=== PATIENT | male | born 1965 | race Caucasian/White ===

== ENCOUNTER → 2016-12-03 | Outpatient (REF) | payer OTHER ==
[2016-12-03 12:18] LABS: MEAN CORPUSCULAR HGB CONC 32.8 g/dl (32.0-36.5); MEAN CORPUSCULAR VOLUME 91.5 fl (80.0-96.0); RED CELL DISTRIBUTION WIDTH 12.4 % (11.5-14.5); WHITE BLOOD COUNT 8.2 K/mm3 (4.0-10.0)
[2016-12-03 12:34] LABS: ALBUMIN 3.6 GM/DL (3.2-5.2); ALBUMIN/GLOBULIN RATIO 0.92 (1.00-1.93); ALKALINE PHOSPHATASE 79 U/L (45-117); ALT/SGPT 21 U/L (12-78); ANION GAP 6 MEQ/L (8-16); AST/SGOT 15 U/L (15-37); BLOOD UREA NITROGEN 10 MG/DL (7-18); CALCIUM LEVEL 8.7 MG/DL (8.5-10.1); CARBON DIOXIDE LEVEL 30 MEQ/L (21-32); CHLORIDE LEVEL 104 MEQ/L (98-107); CREATININE FOR GFR 0.89 MG/DL (0.70-1.30); FREE T4 1.12 NG/DL (0.76-1.46); GLOMERULAR FILTRATION RATE > 60.0 (>60); GLUCOSE, FASTING 80 MG/DL (70-105); POTASSIUM SERUM 4.3 MEQ/L (3.5-5.1); SODIUM LEVEL 140 MEQ/L (136-145); TOTAL PROTEIN 7.5 GM/DL (6.4-8.2)
[2016-12-03 12:40] LABS: BILIRUBIN,TOTAL 0.4 MG/DL (0.2-1.0)
== END ==
LOC: M SFHCPLAZ 10:23
PROVIDERS: ATTEND Physician Assistant Medical
DX: J32.9 Chronic sinusitis, unspecified (principal); R55 Syncope and collapse

== ENCOUNTER → 2017-01-01 | Outpatient (CLI) | payer OTHER ==
--- NOTE | 2017-01-01 16:23 | REP ---
CAROTID ULTRASOUND: Real-time ultrasound evaluation and duplex Doppler interrogation of the extracranial carotid vasculature is performed. There is mild plaquing and narrowing in both carotid bulbs extending into the internal and external carotid arteries. Luminal narrowing is less than 50%. There is no evidence of hemodynamically significant stenosis of either internal carotid artery. Normal flow velocities are seen. The vertebral arteries demonstrate normal direction of flow. RIGHT LEFT Peak systolic velocity ICA 64.0 cm/s 54.3 cm/s End diastolic velocity ICA 27.1 cm/s 19.5 cm/s Peak systolic velocity CCA 119.5 cm/s 109.4 cm/s Peak systolic velocity ECA 89.8 cm/s 80.9 cm/s ICA/CCA ratio 0.54 0.5 IMPRESSION: Bilateral luminal narrowing of the internal carotid arteries less than 50%. No evidence of hemodynamically significant stenosis. Signed by Abdelrahman Tay MD 01/01/2017 04:15 P
== END ==
LOC: M SLEEP 13:43
PROVIDERS: ATTEND Physician Assistant Medical
DX: R55 Syncope and collapse (principal)

== ENCOUNTER → 2017-01-22 | Outpatient (CLI) | payer OTHER ==
--- NOTE | 2017-01-25 08:38 | REP ---
MRI BRAIN WITHOUT CONTRAST: HISTORY: Syncope. COMPARISON: CT 12/14/2013. Several punctate areas of increased signal intensity on T2-weighted images are present in the subcortical white matter. This represents small vessel ischemic disease. There is no intraparenchymal hemorrhage, infarct, mass or midline shift. 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 The ventricular system is normal in appearance. There is no extracerebral collection. Mucosal thickening is present in the maxillary sinuses. IMPRESSION: Minimal small vessel ischemic disease. Signed by Lincoln Davila MD 01/25/2017 09:18 A
== END ==
LOC: M RAD 16:16
PROVIDERS: ATTEND Physician Assistant Medical
DX: R55 Syncope and collapse (principal)

== ENCOUNTER → 2017-06-17 | Outpatient (CLI) | payer OTHER ==
[2017-06-17 17:52] LABS: BLOOD UREA NITROGEN 11 MG/DL (7-18); CREATININE FOR GFR 0.88 MG/DL (0.70-1.30); GLOMERULAR FILTRATION RATE > 60.0 (>56)
== END ==
LOC: M LAB 16:18
PROVIDERS: ATTEND Physical Medicine & Rehabilitation
DX: M51.37 Other intervertebral disc degeneration, lumbosacral region (principal)

== ENCOUNTER 2017-09-16 19:48 | Emergency (ER) | payer OTHER ==
[~2017-09-16] VITALS: Ht 170.2 cm; Wt 63.6 kg
[2017-09-16 19:50] VITALS: BP 115/76
[2017-09-16] MEDS ORDERED: IBUP80TA PO (20:03)
[2017-09-16] MEDS ORDERED: HYDR-3713 PO (20:03)
[2017-09-16] MEDS ORDERED: PANT40TA2 PO (20:06)
[2017-09-16] MEDS ORDERED: TETRACAINE 0.5% OPHTH SOLN 4ML OD ONE (21:00)
[2017-09-16] MEDS ORDERED: ERYTOIN8 OD (21:03)
[2017-09-16] MEDS ORDERED: ERYTHROMYCIN OPHTH OINT OD ONE (21:15)
== END 2017-09-16 21:17 | disposition home or self-care (01) ==
LOC: M ED 19:48
DX: S05.01XA Injury of conjunctiva and corneal abrasion without foreign body, right eye, initial encounter (principal); Z72.0 Tobacco use; X58.XXXA Exposure to other specified factors, initial encounter; Y92.89 Other specified places as the place of occurrence of the external cause; Y93.89 Activity, other specified; Y99.0 Civilian activity done for income or pay

== ENCOUNTER 2019-08-19 11:05 | Emergency (ER) | payer OTHER, SELFPAY ==
[~2019-08-19] VITALS: Ht 170.2 cm; Wt 64.0 kg
[~2019-08-19 11:05] MED LIST: ERYTOIN8 OD; HYDR-3713 PO; IBUP80TA PO; PANT40TA3 PO
[2019-08-19] MEDS ORDERED: ROBA750T4 PO (11:27)
[2019-08-19] MEDS ORDERED: KETO10TAB PO (11:27)
[2019-08-19] MEDS ORDERED: NORC1TAB7 PO (11:27)
[2019-08-19] MEDS ORDERED: KETOROLAC 60 MG/2 ML VIAL (J1885) IM ONE (11:30)
[2019-08-19] MEDS ORDERED: METHOCARBAMOL 500 MG TAB PO ONE (11:30)
[2019-08-19] MEDS ORDERED: NORCO, ANEXSIA 5/325MG TABLET (HYDROcodone/ACETAMINOPHEN) PO ONE (11:30)
[2019-08-19 11:32] VITALS: BP 103/74
== END 2019-08-19 11:45 | disposition home or self-care (01) ==
LOC: M ED 11:05
DX: M54.42 Lumbago with sciatica, left side (principal); M51.9 Unspecified thoracic, thoracolumbar and lumbosacral intervertebral disc disorder; G89.29 Other chronic pain; I10 Essential (primary) hypertension; K21.9 Gastro-esophageal reflux disease without esophagitis; F17.210 Nicotine dependence, cigarettes, uncomplicated
CPT/HCPCS: 96372; 99283; J1885

== ENCOUNTER 2019-11-21 18:40 | Emergency (ER) | payer MEDICAID, OTHER, SELFPAY ==
[~2019-11-21] VITALS: Ht 170.2 cm; Wt 62.2 kg
[~2019-11-21 18:40] MED LIST changes: +KETO10TAB PO; +NORC1TAB7 PO; +ROBA750T4 PO
[2019-11-21] MEDS ORDERED: prevacid (18:46)
[2019-11-21] MEDS ORDERED: LIDOCAINE 5% OINT 30 GM TOP STA (19:50)
[2019-11-21] MEDS ORDERED: KETOROLAC 60 MG/2 ML VIAL (J1885) IM ONE (20:00)
[2019-11-21] MEDS ORDERED: diazePAM 10 MG TAB PO ONE (20:00)
[2019-11-21 22:08] VITALS: BP 103/55
[2019-11-21] MEDS ORDERED: LIDO1CRE2 TOP (22:24)
[2019-11-21] MEDS ORDERED: NAPR-837 PO (22:24)
[2019-11-21] MEDS ORDERED: ROBA750T4 PO (22:24)
--- NOTE | 2019-11-22 11:57 | REP ---
CT CERVICAL SPINE: CT cervical spine performed in the axial plane. Sagittal and coronal reconstruction images are performed. There is no compression fracture or malalignment. There is straightening of the normal cervical lordosis. There is no prevertebral soft tissue swelling. There is mild diffuse spurring of C3 through C7. There is moderate disc space narrowing at C3-4 with subchondral sclerosis. There is mild narrowing at C5-6 and moderate narrowing at C6-7 with subchondral sclerosis. There is mild diffuse sclerosis and spurring at the posterior facet joints. There appears to be mild bilateral foraminal narrowing at C3-4. Spinal canal is grossly adequate. IMPRESSION: Degenerative changes as above without fracture or dislocation. Preliminary report provided by [facility] at the time of the exam. Electronically Signed by Abdelrahman Tay MD 11/22/2019 11:01 P
== END 2019-11-21 22:32 | disposition home or self-care (01) ==
LOC: M ED 18:40
DX: M50.30 Other cervical disc degeneration, unspecified cervical region (principal); M62.838 Other muscle spasm; I10 Essential (primary) hypertension; F17.200 Nicotine dependence, unspecified, uncomplicated
CPT/HCPCS: 72125; 96372; 99283; J1885

== ENCOUNTER 2020-05-18 04:40 | Emergency (ER) | payer MEDICAID, OTHER ==
[~2020-05-18 04:40] MED LIST changes: +LIDO1CRE2 TOP; +NAPR-837 PO; +PANT40TA29 PO; -PANT40TA3 PO; +prevacid
[2020-05-18] MEDS ORDERED: METHOCARBAMOL 1,000 MG/10 ML VIAL (J2800) ONE (05:25)
[2020-05-18] MEDS ORDERED: NORCO, ANEXSIA 5/325MG TABLET (HYDROcodone/ACETAMINOPHEN) ONE (05:25)
[2020-05-18] MEDS ORDERED: KETOROLAC 60MG 2ML VIAL ONE (05:25)
== END 2020-05-18 07:01 | disposition home or self-care (01) ==
LOC: M ED 04:40
DX: G89.29 Other chronic pain (principal); M54.5 Low back pain; F15.10 Other stimulant abuse, uncomplicated

== ENCOUNTER 2023-10-04 09:23 | Emergency (ER) | payer OTHER ==
[~2023-10-04] VITALS: Ht 170.2 cm; Wt 61.3 kg
[2023-10-04] MEDS ORDERED: FAMO-142 PO (10:05)
[2023-10-04 11:35] VITALS: TEMP 96.8
[2023-10-04] MEDS ORDERED: KETOROLAC 60MG 2ML VIAL IM ONE (12:25)
[2023-10-04] MEDS ORDERED: methocarbamoL 500 MG TAB PO ONE (12:25)
[2023-10-04] MEDS ORDERED: predniSONE 20 MG TAB PO ONE (12:25)
[2023-10-04] MEDS ORDERED: IBUP-1022 PO (13:11)
[2023-10-04] MEDS ORDERED: PRED20TA PO (13:11)
[2023-10-04] MEDS ORDERED: METH-1164 PO (13:11)
[2023-10-04 13:26] VITALS: BP 124/72; O2SAT 99
== END 2023-10-04 13:27 | disposition home or self-care (01) ==
LOC: M ED 09:23
DX: M50.321 Other cervical disc degeneration at C4-C5 level (principal); M50.322 Other cervical disc degeneration at C5-C6 level; M50.323 Other cervical disc degeneration at C6-C7 level; M47.814 Spondylosis without myelopathy or radiculopathy, thoracic region; I10 Essential (primary) hypertension; K21.9 Gastro-esophageal reflux disease without esophagitis; Z79.899 Other long term (current) drug therapy
CPT/HCPCS: 72072; 72125; 96372; 99283; J1885; J7512

== ENCOUNTER 2023-10-06 06:25 | Emergency (ER) | payer OTHER ==
[~2023-10-06] VITALS: Ht 170.2 cm; Wt 60.0 kg
[~2023-10-06 06:25] MED LIST changes: +FAMO-142 PO; +IBUP-1022 PO; +METH-1164 PO; +PRED20TA PO
[2023-10-06 08:23] VITALS: BP 117/67; TEMP 98.2; O2SAT 98
[2023-10-06] MEDS ORDERED: GABAPENTIN 100 MG CAP PO ONE (08:40)
[2023-10-06] MEDS ORDERED: LIDOCAINE 5% (LIDODERM) PATCH TD ONE (08:40)
[2023-10-06] MEDS ORDERED: GABA-1171 PO (08:49)
[2023-10-06] MEDS ORDERED: LIDO5DIS41 TOP (08:49)
== END 2023-10-06 09:24 | disposition home or self-care (01) ==
LOC: M ED 06:25
DX: M51.34 Other intervertebral disc degeneration, thoracic region (principal); M54.10 Radiculopathy, site unspecified; Z79.891 Long term (current) use of opiate analgesic; Z79.52 Long term (current) use of systemic steroids; Z79.899 Other long term (current) drug therapy

== ENCOUNTER 2024-09-26 11:03 | Emergency (ER) | payer OTHER ==
[~2024-09-26] VITALS: Ht 170.2 cm; Wt 62.9 kg
[~2024-09-26 11:03] MED LIST changes: +GABA-1171 PO; -LIDO1CRE2 TOP; +LIDO4CRE12 TOP; +LIDO5DIS41 TOP
[2024-09-26] MEDS: LIDOCAINE 5% (LIDODERM) PATCH TD ONE (13:25)
[2024-09-26] MEDS: ACETAMINOPHEN 500 MG TAB PO ONE (13:25)
[2024-09-26] MEDS: KETOROLAC 30 MG/ML 1ML VIAL IM ONE (13:25)
[2024-09-26] MEDS ORDERED: METH-1165 PO (14:35)
[2024-09-26 14:58] VITALS: BP 105/68; TEMP 97.9; O2SAT 99
== END 2024-09-26 14:59 | disposition home or self-care (01) ==
LOC: M ED 11:03
DX: S30.0XXA Contusion of lower back and pelvis, initial encounter (principal); W10.8XXA Fall (on) (from) other stairs and steps, initial encounter; Y92.009 Unspecified place in unspecified non-institutional (private) residence as the place of occurrence of the external cause; Y93.9 Activity, unspecified; Y99.9 Unspecified external cause status; M51.44 Schmorl's nodes, thoracic region; M51.45 Schmorl's nodes, thoracolumbar region; I10 Essential (primary) hypertension; F17.200 Nicotine dependence, unspecified, uncomplicated; Z79.899 Other long term (current) drug therapy
CPT/HCPCS: 72128; 72131; 96372; 99283; J1885

== ENCOUNTER 2024-10-09 09:53 | Emergency (ER) | payer OTHER ==
[~2024-10-09] VITALS: Ht 170.2 cm; Wt 64.1 kg
[~2024-10-09 09:53] MED LIST changes: +METH-1165 PO
[2024-10-09] MEDS ORDERED: IBUP-1022 PO (13:35)
[2024-10-09 13:51] VITALS: BP 103/62; TEMP 97.2; O2SAT 97
== END 2024-10-09 13:52 | disposition home or self-care (01) ==
LOC: M ED 09:53
DX: M54.50 Low back pain, unspecified (principal); I11.9 Hypertensive heart disease without heart failure; F17.200 Nicotine dependence, unspecified, uncomplicated; Z79.899 Other long term (current) drug therapy

== ENCOUNTER → 2024-11-01 | Outpatient (CLI) | payer OTHER | LOC: M RAD 07:47 | PROVIDERS: ATTEND Physician Assistant | DX: Z12.2 Encounter for screening for malignant neoplasm of respiratory organs (principal); F17.218 Nicotine dependence, cigarettes, with other nicotine-induced disorders; R91.1 Solitary pulmonary nodule; J84.10 Pulmonary fibrosis, unspecified ==

== ENCOUNTER → 2025-06-06 | Outpatient (CLI) | payer OTHER ==
[~2025-06-06] MED LIST changes: +LIDO1ADH93 TOP; -LIDO5DIS41 TOP
== END ==
LOC: M PLAIMG 07:53
PROVIDERS: ATTEND Physician Assistant
DX: R91.8 Other nonspecific abnormal finding of lung field (principal); J43.9 Emphysema, unspecified; J47.9 Bronchiectasis, uncomplicated